=== PATIENT | female | born 1995 | race Caucasian/White ===

== ENCOUNTER 2017-01-26 11:28 | Emergency (ER) | payer BC ==
[~2017-01-26] VITALS: Ht 152.4 cm; Wt 72.4 kg
[2017-01-26 11:36] VITALS: TEMP 99.1
[2017-01-26] MEDS ORDERED: XARELTO20 MG PO (11:41)
[2017-01-26 13:59] VITALS: BP 118/81; PULSE 78
== END 2017-01-26 14:02 | disposition home or self-care (01) ==
LOC: COL.ER 11:28
DX: M79.604 Pain in right leg (principal); Z86.718 Personal history of other venous thrombosis and embolism

== ENCOUNTER 2017-03-16 20:59 | Emergency (ER) | payer BC ==
[~2017-03-16] VITALS: Ht 154.9 cm; Wt 70.9 kg
[~2017-03-16 20:59] MED LIST: XARELTO20 MG PO
[2017-03-16 21:01] VITALS: BP 113/68; TEMP 99
[2017-03-16 22:28] VITALS: PULSE 61
== END 2017-03-16 22:28 | disposition home or self-care (01) ==
LOC: COL.ER 20:59
DX: I82.4Y1 Acute embolism and thrombosis of unspecified deep veins of right proximal lower extremity (principal); Z87.39 Personal history of other diseases of the musculoskeletal system and connective tissue
CPT/HCPCS: J1650

== ENCOUNTER → 2017-03-17 | Outpatient (CLI) | payer BC | LOC: COL.VAS 14:00 | DX: M79.661 Pain in right lower leg (principal) ==

== ENCOUNTER 2017-05-05 23:31 | Emergency (ER) | payer BC ==
[~2017-05-05] VITALS: Ht 152.4 cm; Wt 70.5 kg
[2017-05-05 23:34] VITALS: BP 124/66; TEMP 99
[2017-05-05] MEDS ORDERED: MOBIC15 MG PO (23:40)
[2017-05-06] MEDS ORDERED: XARELTO15 MG PO (01:26)
[2017-05-06 01:47] VITALS: PULSE 88
== END 2017-05-06 01:48 | disposition home or self-care (01) ==
LOC: COL.ER 23:31
DX: I82.4Y1 Acute embolism and thrombosis of unspecified deep veins of right proximal lower extremity (principal); Z86.711 Personal history of pulmonary embolism; Z98.890 Other specified postprocedural states
CPT/HCPCS: J1650

== ENCOUNTER 2018-06-19 08:07 | Emergency (ER) | payer BC ==
[~2018-06-19] VITALS: Ht 154.9 cm; Wt 68.2 kg
[~2018-06-19 08:07] MED LIST changes: +MOBIC15 MG PO; +XARELTO15 MG PO
[2018-06-19 08:12] VITALS: BP 110/76; TEMP 98.9
[2018-06-19] MEDS ORDERED: LOVENOX 8080 MG/0.8 SQ (08:27)
[2018-06-19 09:06] VITALS: PULSE 78
[2018-06-19] MEDS ORDERED: CRUTCHES MC (09:20)
== END 2018-06-19 09:23 | disposition home or self-care (01) ==
LOC: COL.ER 08:07
DX: S90.31XA Contusion of right foot, initial encounter (principal); W00.0XXA Fall on same level due to ice and snow, initial encounter; Y92.410 Unspecified street and highway as the place of occurrence of the external cause

== ENCOUNTER → 2018-06-22 | Outpatient (CLI) | payer BC ==
[~2018-06-22] MED LIST changes: +CRUTCHES MC; +LOVENOX 8080 MG/0.8 SQ
== END ==
LOC: COL.RAD 12:38
DX: I82.401 Acute embolism and thrombosis of unspecified deep veins of right lower extremity (principal); I26.99 Other pulmonary embolism without acute cor pulmonale
CPT/HCPCS: Q9967

== ENCOUNTER → 2018-06-28 | Outpatient (CLI) | payer BC ==
[~2018-06-28] MED LIST changes: +KLONOPIN 0.5MG0.5 MG PO; +ZOLOFT 50MG50 MG PO
== END ==
LOC: COL.VAS 09:30
DX: Z13.6 Encounter for screening for cardiovascular disorders (principal); I82.401 Acute embolism and thrombosis of unspecified deep veins of right lower extremity

== ENCOUNTER 2018-06-29 10:11 | Outpatient (CLI) | payer BC ==
[~2018-06-29] VITALS: Ht 155 cm; Wt 69.5 kg
[2018-06-29] VITALS (10 sets, daily range): BP systolic 110–167; BP diastolic 62–118; PULSE 52–82; TEMP 98
[~2018-06-29 10:11] MED LIST changes: -KLONOPIN 0.5MG0.5 MG PO; -ZOLOFT 50MG50 MG PO
[2018-06-29] MEDS ORDERED: KLONOPIN 0.5MG0.5 MG PO (11:12)
[2018-06-29] MEDS ORDERED: LOVENOX 8080 MG/0.8 SQ (11:12)
[2018-06-29] MEDS ORDERED: ZOLOFT 50MG50 MG PO (11:13)
--- NOTE | 2018-06-29 12:33 | NUR ---
ALL MEDS GIVEN WITH VERBAL ORDER FROM MD. SEE MERGE FOR ADMIN TIMES.
--- NOTE | 2018-06-29 13:45 | NUR ---
Back from CT post IVC filter removal with lots of pain . Dressing to right subclavin CD&I, ice pack applied to area. 2 [place] 5/325 mg given po for pain. Will continued to monitor
--- NOTE | 2018-06-29 14:00 | NUR ---
Pain 10/10 on pain scale to right subclavin. Will continue to monitor
--- NOTE | 2018-06-29 14:15 | NUR ---
Pain 8/10 on pain scale. Will continue to monitor
--- NOTE | 2018-06-29 14:45 | NUR ---
Pain scale 6/10 on pain scale. Ordering something to eat. Will continue to monitor
--- NOTE | 2018-06-29 15:15 | NUR ---
pain 3/10 on pain scale. Eating and talking with family
--- NOTE | 2018-06-29 16:15 | NUR ---
Denies pain at this time. Dr. Gamboa in to see pt for discharge
--- NOTE | 2018-06-29 16:45 | NUR ---
INT discontinued intact. Discharge instructions given with script for [place] 5/325 mg and note for school per Dr. Gamboa. Transferred to private car by
== END 2018-06-29 16:45 | disposition home or self-care (01) ==
LOC: COL.VAS 10:11
DX: I82.401 Acute embolism and thrombosis of unspecified deep veins of right lower extremity (principal); I26.99 Other pulmonary embolism without acute cor pulmonale
CPT/HCPCS: J1644; J2250; J3010; J7120; Q9967

== ENCOUNTER 2019-02-03 16:04 | Emergency (ER) | payer BC ==
[~2019-02-03] VITALS: Ht 152.4 cm; Wt 70.5 kg
[~2019-02-03 16:04] MED LIST changes: +KLONOPIN 0.5MG0.5 MG PO; +ZOLOFT 50MG50 MG PO
[2019-02-03 16:08] VITALS: TEMP 98.9
[2019-02-03] MEDS ORDERED: PROAIR HFA0.09 MG/AC INH (16:11)
[2019-02-03] MEDS ORDERED: LOVENOX120 MG/0.8 SQ (16:12)
[2019-02-03 16:54] LABS: BASO % 0.2 % (0.0-2.0); EOS # 0.1 (0.0-0.7); GRAN # 3.1 (1.4-6.5); GRAN % 52.1 % (42.2-75.2); HEMATOCRIT 37.4 % (37.0-47.0); HEMOGLOBIN 12.3 g/dl (12.5-16.0); LYMPH # 2.3 (1.2-3.4); LYMPH % 37.7 % (20.0-51.0); MEAN CELL VOLUME 88 fl (80.0-100.0); MEAN CORPUSCULAR HEMOGLOBIN 29 pg (27.0-31.0); MEAN CORPUSCULAR HGB CONC 33 g/dl (33.0-37.0); MEAN PLATELET VOLUME 9.4 fl (7.4-10.4); MONO # 0.5 (0.1-0.6); MONO % 7.8 % (1.7-9.3); PLATELET COUNT 130 K/mm3 (130-400); RED BLOOD COUNT 4.23 M/mm3 (4.10-5.30); REDCELL DISTRIBUTION WIDTH-CV 12.7 % (11.5-14.5)
[2019-02-03 17:00] LABS: ANION GAP 11 mmol/L (7-16); BLOOD UREA NITROGEN 13 mg/dL (7-17); CALCIUM 9.5 mg/dL (8.4-10.2); CARBON DIOXIDE 23 mmol/L (22-30); CHLORIDE 106 mmol/L (98-107); CREATININE, serum 0.67 (0.52-1.25); GLUCOSE 145 mg/dL (74-106); POTASSIUM 3.6 mmol/L (3.4-5.0); SODIUM 140 mmol/L (137-145)
[2019-02-03 17:12] LABS: TROPONIN-I < 0.012 ng/mL (0.000-0.035)
[2019-02-03] MEDS ORDERED: PREDNISONE20 MG PO (18:11)
[2019-02-03 18:22] VITALS: BP 105/70; PULSE 74
== END 2019-02-03 18:26 | disposition home or self-care (01) ==
LOC: COL.ER 16:04
PROVIDERS: Emergency Medicine
DX: R07.81 Pleurodynia (principal); Z86.73 Personal history of transient ischemic attack (TIA), and cerebral infarction without residual deficits; Z86.711 Personal history of pulmonary embolism
CPT/HCPCS: J2930; J7030; Q9967

== ENCOUNTER → 2019-09-19 | Outpatient (CLI) | payer BC ==
[~2019-09-19] MED LIST changes: +LOVENOX120 MG/0.8 SQ; +PREDNISONE20 MG PO; +PROAIR HFA0.09 MG/AC INH
== END ==
LOC: COL.VAS 08:44
DX: D68.62 Lupus anticoagulant syndrome (principal); I82.401 Acute embolism and thrombosis of unspecified deep veins of right lower extremity; Z86.718 Personal history of other venous thrombosis and embolism

== ENCOUNTER → 2020-08-09 | Outpatient (CLI) | payer BC | LOC: COL.RAD 13:28 | DX: M79.89 Other specified soft tissue disorders (principal); I82.401 Acute embolism and thrombosis of unspecified deep veins of right lower extremity | CPT/HCPCS: Q9967 ==